=== PATIENT | female | born 1955 | race Caucasian/White ===

== ENCOUNTER → 2017-10-31 | Outpatient (CLI) | payer MEDICARE, OTHER ==
[~2017-10-31] MED LIST: ACET325 PO; AMOCLA600S PO; ASPI325 PO; ASPI81EC PO; BENZ.5 PO; BENZ1I IM; BENZOTROPINE; CIPR500 PO; CLON.5 PO; DIPH50 PO; DOCU100 PO; ERGO50000 PO; FURO40 PO; HALO5 PO; HYDPAM25 PO; Haldol Dec100 MG/1 M IM; LEVE500 PO; LEVFLO250 PO; LEVO750 PO; LEVSOD100 PO; LEVSOD50 PO; LISI5 PO; LITH300C PO; LITH300CA PO; LITH450ER PO; LORA2 PO; LORA2L IM; MELA3 PO; METO25; MIDO5 PO; NIAC250ER PO; OLAN10 PO; OLAN10A MM; OMEP20ER PO; ONDA8ODT MM; POTCIT10; PROP80ER PO; RANI150EL; SULTRIDS PO; TRIA80TC TOP; VITAMIN B1; VRAYLAR6 MG PO; ZOLP10 PO; [UNRECOGNIZED DRUG - REMARK]
[2017-11-01 08:54] LABS: Bilirubin, Urine Neg (Neg); Blood, Urine Neg (Neg); Glucose Qualitative, Urine Neg (Neg); Ketones, Urine Neg (Neg); Leukocyte Esterase, Urine 1+ (Neg); Nitrite, Urine Neg (Neg); Protein, Urine Neg (Neg); Urobilinogen, Urine NORM (Normal)
[2017-11-01 09:08] LABS: Appearance, Urine Hazy (Clear); Color, Urine Yellow (P-Yellow)
[2017-11-01 09:23] LABS: Red Blood Cells, Urine Not Seen /hpf (0-2)
[2017-11-01 09:24] LABS: Bacteria Few /hpf; Squamous Epithelial Cells Few /hpf (Few)
[2017-11-01 09:25] LABS: Calcium Oxalate Crystals Mod /hpf; Mucus Light (0-Heavy)
== END ==
LOC: LAB SHORT 13:45
DX: N39.0 Urinary tract infection, site not specified (principal)
CPT/HCPCS: 81001; 87086; 87106

== ENCOUNTER 2017-11-16 02:14 | Emergency (ER) | payer MEDICARE, OTHER ==
[~2017-11-16] VITALS: Ht 162.6 cm; Wt 81.7 kg
[~2017-11-16 02:14] MED LIST changes: -ACET325 PO; -BENZOTROPINE; -CLON.5 PO; -FURO40 PO; -HALO5 PO; -LEVE500 PO; -LORA2L IM; -MELA3 PO; -METO25; -MIDO5 PO; -POTCIT10; -RANI150EL; -VITAMIN B1; -VRAYLAR6 MG PO
[2017-11-16] MEDS ORDERED: VRAYLAR6 MG PO (02:45)
[2017-11-16] MEDS ORDERED: VITAMIN B1 (02:46)
[2017-11-16] MEDS ORDERED: ACET325 PO (02:46)
[2017-11-16] MEDS ORDERED: CLON.5 PO ×2 (02:47→02:51)
[2017-11-16] MEDS ORDERED: HALO5 PO (02:48)
[2017-11-16] MEDS ORDERED: LORA2L IM (02:48)
[2017-11-16] MEDS ORDERED: MELA3 PO (02:48)
[2017-11-16] MEDS ORDERED: BENZOTROPINE (02:50)
[2017-11-16] MEDS ORDERED: LEVSOD50 PO (02:50)
[2017-11-16] MEDS ORDERED: FURO40 PO (02:51)
[2017-11-16] MEDS ORDERED: LEVE500 PO (02:51)
[2017-11-16] MEDS ORDERED: POTCIT10 (02:52)
[2017-11-16] MEDS ORDERED: METO25 (02:52)
[2017-11-16] MEDS ORDERED: MIDO5 PO (02:52)
[2017-11-16] MEDS ORDERED: RANI150EL (02:53)
[2017-11-16 03:06] LABS: BASOPHILS ABSOLUTE AUTO 0.04 K/mm3 (0.00-0.23); BASOPHILS PERCENT AUTO 1 % (0-2); EOSINOPHILS ABSOLUTE AUTO 0.08 K/mm3 (0.00-0.68); EOSINOPHILS PERCENT AUTO 1 % (0-6); Hemoglobin 12.8 g/dL (11.5-16.0); IMMATURE GRAN ABSOLUTE AUTO 0.01 K/mm3 (0.00-0.10); IMMATURE GRAN PERCENT AUTO 0 % (0-1); LYMPHOCYTES ABSOLUTE AUTO 2.56 K/mm3 (0.84-5.20); LYMPHOCYTES PERCENT AUTO 38 % (21-46); MONOCYTES ABSOLUTE AUTO 0.84 K/mm3 (0.16-1.47); MONOCYTES PERCENT AUTO 12 % (4-13); Mean Corpuscular HGB 30.3 pg (26.0-34.0); Mean Corpuscular HGB Conc 32.8 g/dL (31.5-36.5); Mean Corpuscular Volume 92 fL (80-100); Mean Platelet Volume 11.3 fL (9.1-12.4); NEUTROPHILS ABSOLUTE AUTO 3.22 K/mm3 (1.96-9.15); NEUTROPHILS PERCENT AUTO 48 % (41-73); Platelet Count 180 K/mm3 (150-400); RDW Coefficient Variation 12.3 % (11.7-14.2); RDW Standard Deviation 41.2 fL (35.1-46.3); Red Blood Cell Count 4.22 M/mm3 (3.80-5.20); White Blood Cell Count 6.75 K/mm3 (4.00-11.30)
[2017-11-16 03:23] LABS: Alanine Aminotransfer (ALT/SGP 20 U/L (12-78); Albumin, Blood 3.4 g/dL (3.4-5.0); Albumin/Globulin Ratio 1.1 (0.8-1.8); Alk Phos 131 U/L (50-136); Anion Gap 11 mmol/L (6-16); Aspartate Aminotrans (AST/SGOT 26 U/L (12-37); Bilirubin, Total 0.7 mg/dL (0.1-1.0); Blood Urea Nitrogen 19 mg/dL (8-24); Bun/Creatinine Ratio 22.9 (12.0-20.0); CO2, Blood 24 mmol/L (21-32); Calcium, Blood 9.3 mg/dL (8.5-10.1); Chloride, Blood 108 mmol/L (98-108); Creatinine, Blood 0.83 mg/dL (0.40-1.00); Globulin, Blood 3.2 g/dL (2.2-4.0); Glomerular Filtration Rate >60 (60-); Glucose, Blood 64 mg/dL (70-99); Potassium, Blood 3.9 mmol/L (3.5-5.5); Sodium, Blood 143 mmol/L (136-145); Total Protein, Blood 6.6 g/dL (6.4-8.2); Troponin I <0.015 ng/mL (0.000-0.040)
[2017-11-16 04:04] LABS: Source, Urine Clean Catch
[2017-11-16 04:06] LABS: Blood, Urine 1+ (Neg); Glucose Qualitative, Urine Neg (Neg); Ketones, Urine 2+ (Neg); Leukocyte Esterase, Urine 3+ (Neg); Nitrite, Urine Neg (Neg); Protein, Urine 2+ (Neg); Specific Gravity, Urine 1.025 (1.003-1.022); Urobilinogen, Urine 1+ (Normal)
[2017-11-16 04:12] LABS: Appearance, Urine Hazy (Clear); Bilirubin, Urine 1+ (Neg); Color, Urine Amber (P-Yellow); White Blood Cells, Urine 25-50 /hpf (0-5)
[2017-11-16 04:13] LABS: Amorphous Light (0-Heavy); Bacteria Mod /hpf; Mucus Mod (0-Heavy); Squamous Epithelial Cells Few /hpf (Few)
== END 2017-11-16 05:57 | disposition home or self-care (01) ==
LOC: ER 02:14
PROVIDERS: Emergency Medicine
DX: F30.9 Manic episode, unspecified (principal); Z88.8 Allergy status to other drugs, medicaments and biological substances; Z79.899 Other long term (current) drug therapy; F31.9 Bipolar disorder, unspecified; F25.9 Schizoaffective disorder, unspecified; G40.909 Epilepsy, unspecified, not intractable, without status epilepticus
CPT/HCPCS: 36415; 51702; 80053; 81001; 83605; 83690; 84484; 85025; 87040; 87086; 87147; 93005; 93010; 96361; 96374; 99285; J2060; J7030

== ENCOUNTER → 2018-02-02 | Outpatient (CLI) | END | disposition home or self-care (01) ==

== ENCOUNTER → 2018-03-29 | Outpatient (CLI) | payer MEDICARE, OTHER ==
[~2018-03-29] MED LIST changes: +ACET325 PO; +BENZOTROPINE; +CLON.5 PO; +FURO40 PO; +HALO5 PO; +LEVE500 PO; +LORA2L IM; +MELA3 PO; +METO25; +MIDO5 PO; +POTCIT10; +RANI150EL; +VITAMIN B1; +VRAYLAR6 MG PO
[2018-03-29 11:44] LABS: Source, Urine Clean Catch
[2018-03-29 12:37] LABS: Bilirubin, Urine Neg (Neg); Blood, Urine 1+ (Neg); Glucose Qualitative, Urine Neg (Neg); Ketones, Urine Neg (Neg); Leukocyte Esterase, Urine 3+ (Neg); Nitrite, Urine Neg (Neg); Protein, Urine 1+ (Neg); Urobilinogen, Urine NORM (Normal)
[2018-03-29 12:57] LABS: Appearance, Urine Hazy (Clear); Color, Urine Yellow (P-Yellow)
[2018-03-29 12:58] LABS: Bacteria Few /hpf; Red Blood Cells, Urine 0-2 /hpf (0-2); Squamous Epithelial Cells Few /hpf (Few)
[2018-03-29 12:59] LABS: Calcium Oxalate Crystals Mod /hpf
== END ==
LOC: LAB 11:42 → LAB SHORT 11:42
PROVIDERS: Physician Assistant
DX: N39.0 Urinary tract infection, site not specified (principal)
CPT/HCPCS: 81001; 87086; 87147

== ENCOUNTER → 2018-04-12 | Outpatient (CLI) | payer MEDICARE, OTHER ==
[2018-04-13 19:25] LABS: Source, Urine Clean Catch
[2018-04-13 19:31] LABS: Appearance, Urine Clear (Clear); Bilirubin, Urine Neg (Neg); Blood, Urine Neg (Neg); Color, Urine Yellow (P-Yellow); Glucose Qualitative, Urine Neg (Neg); Ketones, Urine Neg (Neg); Leukocyte Esterase, Urine Neg (Neg); Nitrite, Urine Neg (Neg); Protein, Urine Neg (Neg); Urobilinogen, Urine NORM (Normal)
== END ==
LOC: LAB 18:45 → LAB SHORT 18:45
PROVIDERS: Physician Assistant
DX: N39.0 Urinary tract infection, site not specified (principal)
CPT/HCPCS: 81003

== ENCOUNTER → 2018-05-21 | Outpatient (CLI) | payer MEDICARE, OTHER ==
[2018-05-21 15:05] LABS: Appearance, Urine Hazy (Clear); Bilirubin, Urine Neg (Neg); Blood, Urine Neg (Neg); Color, Urine Yellow (P-Yellow); Glucose Qualitative, Urine Neg (Neg); Ketones, Urine 3+ (Neg); Leukocyte Esterase, Urine Neg (Neg); Nitrite, Urine Neg (Neg); Protein, Urine Neg (Neg); Urobilinogen, Urine NORM (Normal)
[2018-05-21 15:34] LABS: Amorphous Light (0-Heavy); Bacteria Few /hpf; Red Blood Cells, Urine Not Seen /hpf (0-2); Squamous Epithelial Cells Not Seen /hpf (Few); White Blood Cells, Urine 0-2 /hpf (0-5)
== END ==
LOC: LAB SHORT 10:58 → LAB 10:58
PROVIDERS: Physician Assistant
DX: N39.0 Urinary tract infection, site not specified (principal)
CPT/HCPCS: 81001

== ENCOUNTER → 2018-09-18 | Outpatient (CLI) | payer MEDICARE, OTHER ==
[2018-09-19 12:00] LABS: Source, Urine Clean Catch
[2018-09-19 12:10] LABS: Bilirubin, Urine Neg (Neg); Blood, Urine Neg (Neg); Glucose Qualitative, Urine Neg (Neg); Ketones, Urine Neg (Neg); Leukocyte Esterase, Urine Neg (Neg); Nitrite, Urine Neg (Neg); Protein, Urine Neg (Neg); Specific Gravity, Urine 1.005 (1.003-1.022); Urobilinogen, Urine NORM (Normal); pH, Urine 6.5 (5.0-8.0)
[2018-09-19 12:20] LABS: Appearance, Urine Clear (Clear); Color, Urine Pale Yellow (P-Yellow)
== END ==
LOC: LAB 11:58 → LAB SHORT 11:58
PROVIDERS: Family Medicine
DX: N39.0 Urinary tract infection, site not specified (principal)
CPT/HCPCS: 81003

== ENCOUNTER → 2018-10-05 | Outpatient (CLI) | payer MEDICARE, OTHER ==
[2018-10-05 19:02] LABS: Source, Urine Clean Catch
[2018-10-05 19:08] LABS: Bilirubin, Urine Neg (Neg); Blood, Urine Neg (Neg); Glucose Qualitative, Urine Neg (Neg); Ketones, Urine 1+ (Neg); Leukocyte Esterase, Urine 1+ (Neg); Nitrite, Urine Neg (Neg); Protein, Urine 1+ (Neg); Specific Gravity, Urine 1.015 (1.003-1.022); Urobilinogen, Urine NORM (Normal)
[2018-10-05 19:18] LABS: Appearance, Urine Clear (Clear); Color, Urine Yellow (P-Yellow)
[2018-10-05 19:19] LABS: Red Blood Cells, Urine 0-2 /hpf (0-2)
[2018-10-05 19:25] LABS: Bacteria Few /hpf; Squamous Epithelial Cells Mod /hpf (Few)
== END ==
LOC: LAB SHORT 13:35 → LAB 13:35
PROVIDERS: Family Medicine
DX: N39.0 Urinary tract infection, site not specified (principal)
CPT/HCPCS: 81001; 87086

== ENCOUNTER → 2018-10-09 | Outpatient (CLI) | payer MEDICARE, OTHER ==
[2018-10-09 14:18] LABS: Source, Urine Clean Catch
[2018-10-09 15:35] LABS: Appearance, Urine Clear (Clear); Bilirubin, Urine Neg (Neg); Blood, Urine Neg (Neg); Color, Urine Yellow (P-Yellow); Glucose Qualitative, Urine Neg (Neg); Ketones, Urine Neg (Neg); Leukocyte Esterase, Urine Neg (Neg); Nitrite, Urine Neg (Neg); Protein, Urine Neg (Neg); Urobilinogen, Urine NORM (Normal); pH, Urine 6.5 (5.0-8.0)
== END ==
LOC: LAB 14:16 → LAB SHORT 14:16
PROVIDERS: Family Medicine
DX: N39.0 Urinary tract infection, site not specified (principal)
CPT/HCPCS: 81003

== ENCOUNTER → 2018-11-21 | Outpatient (CLI) | payer MEDICARE, OTHER ==
[2018-11-21 12:43] LABS: Appearance, Urine Turbid (Clear); Bilirubin, Urine Neg (Neg); Blood, Urine Neg (Neg); Color, Urine Yellow (P-Yellow); Glucose Qualitative, Urine Neg (Neg); Ketones, Urine Neg (Neg); Leukocyte Esterase, Urine 1+ (Neg); Nitrite, Urine Neg (Neg); Protein, Urine 1+ (Neg); Specific Gravity, Urine 1.025 (1.003-1.022); Urobilinogen, Urine NORM (Normal)
[2018-11-21 13:25] LABS: Bacteria Many /hpf; Red Blood Cells, Urine 0-2 /hpf (0-2); Squamous Epithelial Cells Few /hpf (Few); White Blood Cells, Urine 0-2 /hpf (0-5)
[2018-11-21 13:26] LABS: Calcium Oxalate Crystals Few /hpf
== END ==
LOC: LAB 12:17 → LAB SHORT 12:17
PROVIDERS: Family Medicine
DX: N39.0 Urinary tract infection, site not specified (principal)
CPT/HCPCS: 81001; 87086

== ENCOUNTER → 2018-11-26 | Outpatient (CLI) | payer MEDICARE, OTHER ==
[2018-11-26 11:53] LABS: Source, Urine Clean Catch
[2018-11-26 12:22] LABS: Bilirubin, Urine Neg (Neg); Blood, Urine Neg (Neg); Glucose Qualitative, Urine Neg (Neg); Ketones, Urine Neg (Neg); Leukocyte Esterase, Urine Neg (Neg); Nitrite, Urine Neg (Neg); Protein, Urine 1+ (Neg); Specific Gravity, Urine 1.025 (1.003-1.022); Urobilinogen, Urine NORM (Normal)
[2018-11-26 12:35] LABS: Appearance, Urine Clear (Clear); Color, Urine Yellow (P-Yellow)
== END | disposition home or self-care (01) ==
LOC: LAB SHORT 11:51 → LAB 11:51
PROVIDERS: Family Medicine
DX: N39.0 Urinary tract infection, site not specified (principal)
CPT/HCPCS: 81003

== ENCOUNTER → 2018-12-27 | Outpatient (CLI) | payer MEDICARE, OTHER ==
[2018-12-27 13:56] LABS: Source, Urine Clean Catch
[2018-12-27 14:17] LABS: Bilirubin, Urine Neg (Neg); Blood, Urine Neg (Neg); Glucose Qualitative, Urine Neg (Neg); Ketones, Urine Neg (Neg); Leukocyte Esterase, Urine Neg (Neg); Nitrite, Urine Neg (Neg); Protein, Urine Neg (Neg); Urobilinogen, Urine NORM (Normal)
[2018-12-27 14:30] LABS: Appearance, Urine Clear (Clear); Color, Urine Yellow (P-Yellow)
== END | disposition home or self-care (01) ==
LOC: LAB SHORT 13:53 → LAB 13:53
PROVIDERS: Family Medicine
DX: N39.0 Urinary tract infection, site not specified (principal)
CPT/HCPCS: 81003

== ENCOUNTER → 2019-06-10 | Outpatient (CLI) | payer MEDICARE, OTHER ==
[~2019-06-10] MED LIST changes: +Anti-Diarrheal2 MG PO; +B Complex-Foli1 EACH; +BIOTIN5000 MC1; +BISA10S; +Benztropine Mesy1 MG; +CIPR250; +LEVSOD25 PO; +LORA.5 PO; +Midodrine HCl10 MG PO; +OMEPRAZOLE MAGN20 MG PO; +Prozac20 MG PO; +Thiamine HCl100 MG PO; +VRAYLAR6 MG; +Vitamin B-121000 MCG; +Zantac150 MG PO
[2019-06-10 14:32] LABS: Source, Urine Clean Catch
[2019-06-10 14:35] LABS: Bilirubin, Urine Neg (Neg); Blood, Urine 1+ (Neg); Glucose Qualitative, Urine Neg (Neg); Ketones, Urine Neg (Neg); Leukocyte Esterase, Urine 3+ (Neg); Nitrite, Urine Neg (Neg); Protein, Urine Neg (Neg); Urobilinogen, Urine NORM (Normal)
[2019-06-10 14:42] LABS: Appearance, Urine Hazy (Clear); Color, Urine Yellow (P-Yellow)
[2019-06-10 14:44] LABS: Red Blood Cells, Urine 0-2 /hpf (0-2); White Blood Cells, Urine 50-100 /hpf (0-5)
[2019-06-10 14:45] LABS: Bacteria Many /hpf; Squamous Epithelial Cells Rare /hpf (Few)
== END | disposition home or self-care (01) ==
LOC: LAB 14:31 → LAB SHORT 14:31
PROVIDERS: Family Medicine
DX: N39.0 Urinary tract infection, site not specified (principal)
CPT/HCPCS: 81001; 87077; 87086; 87186

== ENCOUNTER 2019-06-19 07:55 | Day surgery (SDC) | payer MEDICARE ==
[~2019-06-19] VITALS: Ht 157.5 cm; Wt 70.0 kg
[~2019-06-19 07:55] MED LIST changes: -B Complex-Foli1 EACH; -BIOTIN5000 MC1; -BISA10S; -Benztropine Mesy1 MG; -CIPR250; -VRAYLAR6 MG; -Vitamin B-121000 MCG
[2019-06-19] MEDS ORDERED: Benztropine Mesy1 MG (08:44)
[2019-06-19] MEDS ORDERED: BIOTIN5000 MC1 (08:44)
[2019-06-19] MEDS ORDERED: CIPR250 (08:46)
[2019-06-19] MEDS ORDERED: Vitamin B-121000 MCG (08:49)
[2019-06-19] MEDS ORDERED: VRAYLAR6 MG (08:50)
[2019-06-19] MEDS ORDERED: BISA10S (08:50)
[2019-06-19] MEDS ORDERED: B Complex-Foli1 EACH (08:50)
== END 2019-06-19 10:58 | disposition home or self-care (01) ==
LOC: ORSCSDS 07:55
PROVIDERS: Ophthalmology
PROC: 08RJ3JZ Replacement of Right Lens with Synthetic Substitute, Percutaneous Approach (ICD-10-PCS; principal; 2019-06-19 09:30)
PROC: 08RK3JZ Replacement of Left Lens with Synthetic Substitute, Percutaneous Approach (ICD-10-PCS; principal; 2019-06-19 09:30)
DX: H25.13 Age-related nuclear cataract, bilateral (principal); I12.9 Hypertensive chronic kidney disease with stage 1 through stage 4 chronic kidney disease, or unspecified chronic kidney disease; N18.3 Chronic kidney disease, stage 3 (moderate); K21.9 Gastro-esophageal reflux disease without esophagitis; R56.9 Unspecified convulsions; Z79.899 Other long term (current) drug therapy
CPT/HCPCS: J1100; J2001; J2405; J2704; J3010; J3301; V2632

== ENCOUNTER → 2019-08-14 | Outpatient (CLI) | payer MEDICARE, OTHER ==
[~2019-08-14] MED LIST changes: +B Complex-Foli1 EACH; +BIOTIN5000 MC1; +BISA10S; +Benztropine Mesy1 MG; +CIPR250; +VRAYLAR6 MG; +Vitamin B-121000 MCG
[2019-08-14 16:35] LABS: Bilirubin, Urine Neg (Neg); Blood, Urine 1+ (Neg); Glucose Qualitative, Urine Neg (Neg); Ketones, Urine Neg (Neg); Leukocyte Esterase, Urine 3+ (Neg); Nitrite, Urine Neg (Neg); Protein, Urine 1+ (Neg); Urobilinogen, Urine NORM (Normal)
[2019-08-14 16:44] LABS: Appearance, Urine Hazy (Clear); Color, Urine Yellow (P-Yellow)
[2019-08-14 16:45] LABS: White Blood Cells, Urine TNTC /hpf (0-5)
[2019-08-14 16:46] LABS: Bacteria Many /hpf; Squamous Epithelial Cells Few /hpf (Few)
== END | disposition home or self-care (01) ==
LOC: LAB SHORT 14:38 → LAB 14:38
PROVIDERS: Family Medicine
DX: N39.0 Urinary tract infection, site not specified (principal)
CPT/HCPCS: 81001; 87077; 87086; 87186

== ENCOUNTER → 2019-09-10 | Outpatient (CLI) | payer MEDICARE, OTHER ==
[2019-09-10 20:20] LABS: Bilirubin, Urine Neg (Neg); Blood, Urine 3+ (Neg); Glucose Qualitative, Urine Neg (Neg); Ketones, Urine Neg (Neg); Leukocyte Esterase, Urine 3+ (Neg); Nitrite, Urine Neg (Neg); Protein, Urine 2+ (Neg); Specific Gravity, Urine 1.025 (1.003-1.022); Urobilinogen, Urine NORM (Normal)
[2019-09-10 20:23] LABS: Color, Urine Yellow (P-Yellow)
[2019-09-10 20:24] LABS: Appearance, Urine Turbid (Clear)
[2019-09-10 20:28] LABS: Bacteria Many /hpf; Squamous Epithelial Cells Not Seen /hpf (Few); White Blood Cells, Urine TNTC /hpf (0-5)
== END | disposition home or self-care (01) ==
LOC: LAB 19:27 → LAB SHORT 19:27
PROVIDERS: Family Medicine
DX: N39.0 Urinary tract infection, site not specified (principal)
CPT/HCPCS: 81001; 87086

== ENCOUNTER → 2020-02-26 | Outpatient (CLI) | payer OTHER ==
[2020-02-26 14:05] LABS: BASOPHILS ABSOLUTE AUTO 0.05 K/mm3 (0.00-0.23); BASOPHILS PERCENT AUTO 1 % (0-2); EOSINOPHILS ABSOLUTE AUTO 0.07 K/mm3 (0.00-0.68); EOSINOPHILS PERCENT AUTO 2 % (0-6); Hematocrit 43.6 % (33.0-51.0); Hemoglobin 14.2 g/dL (11.5-16.0); IMMATURE GRAN ABSOLUTE AUTO 0.02 K/mm3 (0.00-0.10); IMMATURE GRAN PERCENT AUTO 0 % (0-1); LYMPHOCYTES ABSOLUTE AUTO 1.33 K/mm3 (0.84-5.20); LYMPHOCYTES PERCENT AUTO 29 % (21-46); MONOCYTES ABSOLUTE AUTO 0.34 K/mm3 (0.16-1.47); MONOCYTES PERCENT AUTO 7 % (4-13); Mean Corpuscular HGB 28.9 pg (26.0-34.0); Mean Corpuscular HGB Conc 32.6 g/dL (31.5-36.5); Mean Corpuscular Volume 89 fL (80-100); Mean Platelet Volume 11.5 fL (9.1-12.4); NEUTROPHILS PERCENT AUTO 61 % (41-73); Platelet Count 146 K/mm3 (150-400); RDW Coefficient Variation 12.5 % (11.7-14.2); RDW Standard Deviation 40.7 fL (35.1-46.3); Red Blood Cell Count 4.92 M/mm3 (3.80-5.20); White Blood Cell Count 4.61 K/mm3 (4.00-11.30)
[2020-02-26 15:32] LABS: Alanine Aminotransfer (ALT/SGP 37 U/L (12-78); Albumin, Blood 3.4 g/dL (3.4-5.0); Albumin/Globulin Ratio 1.1 (0.8-1.8); Alk Phos 94 U/L (50-136); Anion Gap 4 mmol/L (6-16); Aspartate Aminotrans (AST/SGOT 21 U/L (12-37); Bilirubin, Total 0.4 mg/dL (0.1-1.0); Blood Urea Nitrogen 19 mg/dL (8-24); Bun/Creatinine Ratio 24.4 (12.0-20.0); CO2, Blood 29 mmol/L (21-32); Calcium, Blood 9.2 mg/dL (8.5-10.1); Chloride, Blood 109 mmol/L (98-108); Creatinine, Blood 0.78 mg/dL (0.40-1.00); Globulin, Blood 3.2 g/dL (2.2-4.0); Glomerular Filtration Rate >60 (60-); Glucose, Blood 122 mg/dL (70-99); Sodium, Blood 142 mmol/L (136-145); Total Protein, Blood 6.6 g/dL (6.4-8.2)
== END | disposition home or self-care (01) ==
LOC: LAB 12:23 → LAB SHORT 12:23
PROVIDERS: Family Medicine
DX: E03.9 Hypothyroidism, unspecified (principal); N18.3 Chronic kidney disease, stage 3 (moderate)
CPT/HCPCS: 80053; 84443; 85025

== ENCOUNTER → 2020-04-07 | Outpatient (CLI) | payer OTHER ==
[2020-04-07 19:40] LABS: Source, Urine Clean Catch
[2020-04-07 19:59] LABS: Bilirubin, Urine Neg (Neg); Blood, Urine Neg (Neg); Glucose Qualitative, Urine Neg (Neg); Ketones, Urine Neg (Neg); Leukocyte Esterase, Urine 3+ (Neg); Nitrite, Urine Neg (Neg); Protein, Urine 1+ (Neg); Specific Gravity, Urine 1.025 (1.003-1.022); Urobilinogen, Urine NORM (Normal)
[2020-04-07 20:18] LABS: Appearance, Urine Hazy (Clear); Color, Urine Yellow (P-Yellow)
[2020-04-07 20:20] LABS: Red Blood Cells, Urine Not Seen /hpf (0-2); Squamous Epithelial Cells Few /hpf (Few)
[2020-04-07 20:21] LABS: Amorphous Mod (0-Heavy); Bacteria Mod /hpf; Calcium Oxalate Crystals Mod /hpf; Mucus Light (0-Heavy)
== END | disposition home or self-care (01) ==
LOC: LAB SHORT 11:00 → LAB 11:00
PROVIDERS: Family Medicine
DX: N39.0 Urinary tract infection, site not specified (principal)
CPT/HCPCS: 81001; 87086

== ENCOUNTER → 2020-06-03 | Outpatient (CLI) | payer OTHER ==
[2020-06-04 12:29] LABS: Source, Urine Clean Catch
[2020-06-04 13:25] LABS: Appearance, Urine Hazy (Clear); Bilirubin, Urine Neg (Neg); Blood, Urine Neg (Neg); Color, Urine Yellow (P-Yellow); Glucose Qualitative, Urine Neg (Neg); Ketones, Urine Neg (Neg); Leukocyte Esterase, Urine 3+ (Neg); Nitrite, Urine Neg (Neg); Protein, Urine Neg (Neg); Specific Gravity, Urine 1.015 (1.003-1.022); Urobilinogen, Urine NORM (Normal); pH, Urine 6.5 (5.0-8.0)
[2020-06-04 14:27] LABS: Red Blood Cells, Urine 0-2 /hpf (0-2)
[2020-06-04 14:29] LABS: Squamous Epithelial Cells Few /hpf (Few)
[2020-06-04 14:30] LABS: Bacteria Few /hpf
== END ==
LOC: LAB SHORT 12:24 → LAB 12:24
PROVIDERS: Family Medicine
DX: N39.0 Urinary tract infection, site not specified (principal)
CPT/HCPCS: 81001; 87077; 87086; 87186

== ENCOUNTER → 2020-07-31 | Outpatient (CLI) | payer OTHER ==
[2020-07-31 19:13] LABS: Source, Urine Clean Catch
[2020-07-31 19:42] LABS: Appearance, Urine Clear (Clear); Bilirubin, Urine Neg (Neg); Blood, Urine Neg (Neg); Color, Urine Yellow (P-Yellow); Glucose Qualitative, Urine Neg (Neg); Ketones, Urine Neg (Neg); Leukocyte Esterase, Urine 1+ (Neg); Nitrite, Urine Neg (Neg); Protein, Urine Neg (Neg); Urobilinogen, Urine NORM (Normal)
[2020-07-31 20:14] LABS: Mucus Light (0-Heavy)
[2020-07-31 20:15] LABS: Calcium Oxalate Crystals Mod /hpf; Red Blood Cells, Urine 0-2 /hpf (0-2)
[2020-07-31 20:16] LABS: Bacteria Rare /hpf; Squamous Epithelial Cells Few /hpf (Few); Transitional Epithelial Cells Rare /hpf (0-Rare)
== END | disposition home or self-care (01) ==
LOC: LAB 19:11 → LAB SHORT 19:11
PROVIDERS: Family Medicine
DX: N39.0 Urinary tract infection, site not specified (principal)
CPT/HCPCS: 81001; 87086

== ENCOUNTER → 2020-09-22 | Outpatient (CLI) | payer OTHER ==
[~2020-09-22] MED LIST changes: +ALUM-MAG HYDROX30 ML PO; +APHEN325 M1 PR; +ATROPINE SULFATE5 ML SL; -Anti-Diarrheal2 MG PO; +Ativan1 MG PO; -B Complex-Foli1 EACH; +BIOTIN5 MG PO; -BIOTIN5000 MC1; -BISA10S; +BISA10S PR; -Benztropine Mesy1 MG; +Benztropine Mesy1 MG PO; +CALMOSEPTINE TOP; +DULCOLAX400 MG/5 M PO; +Diastat2.5 MG PR; +ELIQUIS2.5 MG PO; +EUCERIN CREME TOP; +HALO2 PO; -HALO5 PO; +KEPPRA100 MG/1 M PO; -LEVE500 PO; +LOPE2C PO; -LORA.5 PO; -LORA2L IM; -MELA3 PO; +MELATONIN5 M1 PO; +MIRALAX17 GM PO; +MORP20L SL; -Midodrine HCl10 MG PO; +NYSTOP15 GM TOP; +ONDA4ODT MM; +OXAYDO5 M1 PO; +PROC25S PR; +TRANSDERM-SCOP1 EAC1 TD; +TRIPLE ABX TOP; -VRAYLAR6 MG; +Vitamin B Comple1 EA PO; -Vitamin B-121000 MCG; +Vitamin B-121000 MCG PO
[2020-09-23 12:16] LABS: Source, Urine Clean Catch
[2020-09-23 13:10] LABS: Bilirubin, Urine Neg (Neg); Blood, Urine Neg (Neg); Glucose Qualitative, Urine Neg (Neg); Ketones, Urine Neg (Neg); Leukocyte Esterase, Urine Neg (Neg); Nitrite, Urine Neg (Neg); Protein, Urine Neg (Neg); Specific Gravity, Urine 1.005 (1.003-1.022); Urobilinogen, Urine NORM (Normal)
[2020-09-23 13:36] LABS: Color, Urine Yellow (P-Yellow)
[2020-09-23 13:37] LABS: Appearance, Urine Clear (Clear)
== END | disposition home or self-care (01) ==
LOC: LAB SHORT 12:30 → LAB 12:30
PROVIDERS: Family Medicine
DX: N39.0 Urinary tract infection, site not specified (principal)
CPT/HCPCS: 81003

== ENCOUNTER 2020-10-01 10:42 | Inpatient (IN) | payer OTHER ==
[~2020-10-01] VITALS: Ht 152.4 cm; Wt 70.1 kg
[~2020-10-01 10:42] MED LIST changes: -ACET325 PO; -ALUM-MAG HYDROX30 ML PO; -APHEN325 M1 PR; -ATROPINE SULFATE5 ML SL; -Ativan1 MG PO; -BIOTIN5 MG PO; -BISA10S PR; -Benztropine Mesy1 MG PO; -CALMOSEPTINE TOP; -DULCOLAX400 MG/5 M PO; -Diastat2.5 MG PR; -ELIQUIS2.5 MG PO; -EUCERIN CREME TOP; -HALO2 PO; -KEPPRA100 MG/1 M PO; -LEVSOD25 PO; -LOPE2C PO; -MELATONIN5 M1 PO; -MIRALAX17 GM PO; -MORP20L SL; -NYSTOP15 GM TOP; -ONDA4ODT MM; -OXAYDO5 M1 PO; -PROC25S PR; -Prozac20 MG PO; -TRANSDERM-SCOP1 EAC1 TD; -TRIPLE ABX TOP; -Vitamin B Comple1 EA PO; -Vitamin B-121000 MCG PO
[2020-10-01] MEDS ORDERED: VRAYLAR6 MG PO (14:10)
[2020-10-01] MEDS ORDERED: Prozac20 MG PO (14:12)
[2020-10-01] MEDS ORDERED: Benztropine Mesy1 MG PO (14:12)
[2020-10-01] MEDS ORDERED: HALO2 PO (14:13)
[2020-10-01] MEDS ORDERED: LEVSOD25 PO (14:15)
[2020-10-01] MEDS ORDERED: Ativan1 MG PO (14:16)
[2020-10-01] MEDS ORDERED: KEPPRA100 MG/1 M PO (14:17)
[2020-10-01] MEDS ORDERED: MIDO5 PO (14:18)
[2020-10-01 14:26] LABS: BASOPHILS ABSOLUTE AUTO 0.03 K/mm3 (0.00-0.23); BASOPHILS PERCENT AUTO 0 % (0-2); EOSINOPHILS ABSOLUTE AUTO 0.03 K/mm3 (0.00-0.68); EOSINOPHILS PERCENT AUTO 0 % (0-6); Hematocrit 41.5 % (33.0-51.0); Hemoglobin 13.4 g/dL (11.5-16.0); IMMATURE GRAN ABSOLUTE AUTO 0.01 K/mm3 (0.00-0.10); IMMATURE GRAN PERCENT AUTO 0 % (0-1); LYMPHOCYTES ABSOLUTE AUTO 1.09 K/mm3 (0.84-5.20); LYMPHOCYTES PERCENT AUTO 15 % (21-46); MONOCYTES ABSOLUTE AUTO 0.54 K/mm3 (0.16-1.47); MONOCYTES PERCENT AUTO 7 % (4-13); Mean Corpuscular HGB 28.7 pg (26.0-34.0); Mean Corpuscular HGB Conc 32.3 g/dL (31.5-36.5); Mean Corpuscular Volume 89 fL (80-100); NEUTROPHILS ABSOLUTE AUTO 5.73 K/mm3 (1.96-9.15); NEUTROPHILS PERCENT AUTO 77 % (41-73); Platelet Count 170 K/mm3 (150-400); RDW Coefficient Variation 13.3 % (11.7-14.2); RDW Standard Deviation 43.5 fL (35.1-46.3); Red Blood Cell Count 4.67 M/mm3 (3.80-5.20); White Blood Cell Count 7.43 K/mm3 (4.00-11.30)
[2020-10-01] MEDS ORDERED: ACET325 PO (14:28)
[2020-10-01] MEDS ORDERED: MELATONIN5 M1 PO (14:29)
[2020-10-01] MEDS ORDERED: LOPE2C PO (14:30)
[2020-10-01] MEDS ORDERED: BIOTIN5 MG PO (14:30)
[2020-10-01] MEDS ORDERED: Vitamin B-121000 MCG PO (14:31)
[2020-10-01] MEDS ORDERED: Vitamin B Comple1 EA PO (14:32)
[2020-10-01] MEDS ORDERED: BISA10S PR (14:33)
[2020-10-01] MEDS ORDERED: ALUM-MAG HYDROX30 ML PO (14:34)
[2020-10-01] MEDS ORDERED: DULCOLAX400 MG/5 M PO (14:35)
[2020-10-01] MEDS ORDERED: NYSTOP15 GM TOP (14:36)
[2020-10-01] MEDS ORDERED: PROC25S PR (14:36)
[2020-10-01] MEDS ORDERED: TRIPLE ABX TOP (14:37)
[2020-10-01] MEDS ORDERED: CALMOSEPTINE TOP (14:38)
[2020-10-01] MEDS ORDERED: MIRALAX17 GM PO (14:39)
[2020-10-01] MEDS ORDERED: EUCERIN CREME TOP (14:44)
[2020-10-01 14:53] LABS: Anion Gap 6 mmol/L (6-16); Blood Urea Nitrogen 21 mg/dL (8-24); CO2, Blood 25 mmol/L (21-32); Calcium, Blood 8.6 mg/dL (8.5-10.1); Chloride, Blood 113 mmol/L (98-108); Creatinine, Blood 0.73 mg/dL (0.40-1.00); Glomerular Filtration Rate >60 (60-); Glucose, Blood 111 mg/dL (70-99); Potassium, Blood 4.2 mmol/L (3.5-5.5); Sodium, Blood 144 mmol/L (136-145)
--- NOTE | 2020-10-01 18:14 | NUR ---
SHIFT SUMMARY PT WAKENS EASILY, DOES NOT APPEAR TO BE IN PAIN, DOES NOT COMMUNICATE, VSS. R FEMUR FX, CONSULT CALLED BY ER, PLAN FOR PT TO BE NPO AT MIDNIGHT FOR POSS SG TOMORROW. SISTER/GUARDIAN AT BEDSIDE. WILL REPORT TO ONCOMING NOC RN.
--- NOTE | 2020-10-02 02:17 | NUR ---
UNABLE TO OBTAIN COVID SWAB. WHEN ATTEMPTED, PT SHAKES HEAD, UNABLE TO FOLLOW DIRECTIONS. RN NUT PICKER NOTIFIED. COVID SWAB WILL BE ATTEMPTED AT A LATER TIME.
--- NOTE | 2020-10-02 04:25 | NUR ---
SHIFT SUMMARY PT HAS BEEN SLEEPING MOST OF THE NIGHT, AWAKENS TO VERBAL STIMULI. PT HAS BEEN UNABLE TO COMMUNICATE MUCH VERBALLY. MEDICATED FOR PAIN PRN BASED ON FACE SCALE. PT IS INCONTINENT. ATTENS IN PLACE, CHANGED PRN. BED ALARM ON OVERNIGHT. NPO SINCE MIDNIGHT FOR POSSIBLE SURGERY TODAY. UNABLE TO OBTAIN COVID SWAB PT WAS SHAKING HEAD BACK AND FORTH WHEN SWAB WAS ATTEMPTED. PT RESTING IN BED AT THIS TIME. BED ALARM ON.
[2020-10-02 05:22] LABS: BASOPHILS ABSOLUTE AUTO 0.04 K/mm3 (0.00-0.23); BASOPHILS PERCENT AUTO 1 % (0-2); EOSINOPHILS ABSOLUTE AUTO 0.08 K/mm3 (0.00-0.68); EOSINOPHILS PERCENT AUTO 2 % (0-6); Hematocrit 37.4 % (33.0-51.0); Hemoglobin 11.8 g/dL (11.5-16.0); IMMATURE GRAN ABSOLUTE AUTO 0.01 K/mm3 (0.00-0.10); IMMATURE GRAN PERCENT AUTO 0 % (0-1); LYMPHOCYTES PERCENT AUTO 24 % (21-46); MONOCYTES ABSOLUTE AUTO 0.36 K/mm3 (0.16-1.47); MONOCYTES PERCENT AUTO 7 % (4-13); Mean Corpuscular HGB 28.2 pg (26.0-34.0); Mean Corpuscular HGB Conc 31.6 g/dL (31.5-36.5); Mean Corpuscular Volume 89 fL (80-100); Mean Platelet Volume 10.3 fL (9.1-12.4); NEUTROPHILS ABSOLUTE AUTO 3.35 K/mm3 (1.96-9.15); NEUTROPHILS PERCENT AUTO 67 % (41-73); Platelet Count 143 K/mm3 (150-400); RDW Coefficient Variation 13.5 % (11.7-14.2); Red Blood Cell Count 4.19 M/mm3 (3.80-5.20); White Blood Cell Count 5.04 K/mm3 (4.00-11.30)
[2020-10-02 05:33] LABS: International Normalized Ratio 0.99; Prothrombin Time Results 10.6 Sec (9.7-11.5)
[2020-10-02 05:40] LABS: Alanine Aminotransfer (ALT/SGP 101 U/L (12-78); Albumin, Blood 2.8 g/dL (3.4-5.0); Albumin/Globulin Ratio 0.9 (0.8-1.8); Alk Phos 99 U/L (50-136); Anion Gap 4 mmol/L (6-16); Aspartate Aminotrans (AST/SGOT 106 U/L (12-37); Bilirubin, Total 1.4 mg/dL (0.1-1.0); Blood Urea Nitrogen 22 mg/dL (8-24); Bun/Creatinine Ratio 31.8 (12.0-20.0); CO2, Blood 28 mmol/L (21-32); Calcium, Blood 8.6 mg/dL (8.5-10.1); Chloride, Blood 113 mmol/L (98-108); Creatinine, Blood 0.69 mg/dL (0.40-1.00); Globulin, Blood 3.2 g/dL (2.2-4.0); Glomerular Filtration Rate >60 (60-); Glucose, Blood 108 mg/dL (70-99); Potassium, Blood 3.8 mmol/L (3.5-5.5); Sodium, Blood 145 mmol/L (136-145)
--- NOTE | 2020-10-02 07:30 | NUR ---
pt sleeping wakes to verbal stimuli drowsy
[2020-10-02 07:44] LABS: Influenza A, PCR NEGATIVE (NEGATIVE); Influenza B, PCR NEGATIVE (NEGATIVE); Resp Syncytial Virus, PCR NEGATIVE (NEGATIVE); SARS-Cov-2 (COVID-19) PCR, MMC NEGATIVE (NEGATIVE)
--- NOTE | 2020-10-02 10:08 | NUR ---
dr rosenberg by to see pt earlier pt's sister called she is going to come in to sign consents
--- NOTE | 2020-10-02 10:50 | NUR ---
surgery site marked consent signed
--- NOTE | 2020-10-02 11:35 | NUR ---
10/02/20- pt having surgery today for broken hip. No Est. ETA for d/c at this time. -brunilda
--- NOTE | 2020-10-02 11:50 | NUR ---
pt restless has grimace with movement per sister morphine 2.5 mg ivp given
--- NOTE | 2020-10-02 12:00 | NUR ---
pt transported via bed to day surgery
--- NOTE | 2020-10-02 14:35 | NUR ---
RECVD REPORT FROM PREVIOUS RN ALMA DELIA, ASSUMED CARE OF PT, PT IN OR CURRENTLY
--- NOTE | 2020-10-02 15:05 | NUR ---
pt transferred to room on own bed, POA sister in room. pt asleep, does not wake to verbal/touch stimuli. post op vs commenced and stable. SPO2 100% on 3L, reduced to 2L. call light within reach, bed rails up x 2, bed in lowest position.
--- NOTE | 2020-10-02 17:19 | NUR ---
SHIFT SUMMARY: VSS, NO ACUTE CHANGES. PT HAS BEEN UP IN CHAIR FOR THE GREATER PORTION OF DAY SHIFT, HAS BEEN SOMNOLENT BUT AWAKENS TO VERBAL STIMULI AND FOLLOWS COMMANDS. PT/OT HAS WORKED WITH PATIENT THIS SHIFT. PT TOLERATING PO INTAKE, DENIES PAIN, BARCENAS CATHETER DRAINING CLEAR YELLOW URINE >1000 ML THIS SHIFT.
--- NOTE | 2020-10-02 17:22 | NUR ---
FOLLOWING SURGERY, PT REMAINS SLEEPY, NO GRIMACE OR MOAN, POST OP VSS AND CONTINUING. PT ALLOWS REPOSITIONING WITHOUT DISTURBANCE. OPERATIVE SITE WITH AQUACEL DRESSING C/D/I, NO SHADOWING. CAPILLARY REFILL <3 SEC, PEDAL PULSE IN OPERATIVE FOOT STRONG
--- NOTE | 2020-10-02 21:18 | NUR ---
2100 MEDS PT SLEEPING BUT ROUSABLE, DOESN'T STAY AWAKE FOR LONG, GARBLED SPEECH, HOLDING MEDS DUE TO POSSIBLE CHOKING HAZARD, WILL PASS LATER IF CONDITION IMPROVES
[2020-10-03 04:27] LABS: BASOPHILS PERCENT AUTO 0 % (0-2); EOSINOPHILS PERCENT AUTO 0 % (0-6); Hematocrit 41.1 % (33.0-51.0); IMMATURE GRAN ABSOLUTE AUTO 0.01 K/mm3 (0.00-0.10); IMMATURE GRAN PERCENT AUTO 0 % (0-1); LYMPHOCYTES ABSOLUTE AUTO 0.49 K/mm3 (0.84-5.20); LYMPHOCYTES PERCENT AUTO 9 % (21-46); MONOCYTES PERCENT AUTO 4 % (4-13); Mean Corpuscular HGB 28.5 pg (26.0-34.0); Mean Corpuscular HGB Conc 31.6 g/dL (31.5-36.5); Mean Corpuscular Volume 90 fL (80-100); Mean Platelet Volume 10.7 fL (9.1-12.4); NEUTROPHILS ABSOLUTE AUTO 4.82 K/mm3 (1.96-9.15); NEUTROPHILS PERCENT AUTO 87 % (41-73); Platelet Count 151 K/mm3 (150-400); Red Blood Cell Count 4.56 M/mm3 (3.80-5.20); White Blood Cell Count 5.52 K/mm3 (4.00-11.30)
[2020-10-03 04:45] LABS: Alanine Aminotransfer (ALT/SGP 147 U/L (12-78); Albumin, Blood 2.7 g/dL (3.4-5.0); Albumin/Globulin Ratio 0.7 (0.8-1.8); Alk Phos 136 U/L (50-136); Anion Gap 7 mmol/L (6-16); Aspartate Aminotrans (AST/SGOT 94 U/L (12-37); Bilirubin, Total 1.1 mg/dL (0.1-1.0); Blood Urea Nitrogen 20 mg/dL (8-24); Bun/Creatinine Ratio 29.3 (12.0-20.0); CO2, Blood 26 mmol/L (21-32); Chloride, Blood 111 mmol/L (98-108); Creatinine, Blood 0.68 mg/dL (0.40-1.00); Globulin, Blood 3.7 g/dL (2.2-4.0); Glomerular Filtration Rate >60 (60-); Glucose, Blood 134 mg/dL (70-99); Sodium, Blood 144 mmol/L (136-145); Total Protein, Blood 6.4 g/dL (6.4-8.2)
--- NOTE | 2020-10-03 05:48 | NUR ---
SHIFT SUMMARY POD1 PERCUTANEOUS PINNING, ALERT AND CONFUSED, SPEECH IS GARBLED AND INDISTINGUISHABLE FOR THE MOST PART, CAN SOMETIMES ANSWER SIMPLE YES/NO QUESTIONS. VSS. BEDTIME MEDS HELD DUE TO LOC, WAS CONCERNED FOR POSSIBLE CHOCKING HAZARD/PATIENT SAFETY. DOES NOT USE CALL LIGHT, PAIN MEDS GIVEN ONCE USING FLACC SCALE. CALL LIGHT IN REACH, BED IN LOW POSITION, BED ALARM ACTIVE, WILL CONTINUE TO MONITOR AND REPORT TO ONCOMING DAY RN.
--- NOTE | 2020-10-03 18:49 | NUR ---
SHIFT SUMMARY PT IS POD#1 FROM R HIP PINNING. PT HAS APPEARED TO BE ANXIOUS T/O THE DAY. ASSESSING PAIN IS DIFFICULT PT IS NON-VERBAL AND HAS ANXIETY AT BASELINE. PT HAS BEEN MEDICATED ROUTINELY WITH PO AND IV MEDICATION, SHE APPEARS TO RELAX AFTER PAIN MEDICATION IS GIVEN. PT'S SISTER HAS BEEN AT THE BEDSIDE AND IS SUPPORTIVE. PT'S SISTER HAS ASSISTED WITH MEALS AND FLUIDS ALTHOUGH PT IS NOT WANTING TO EAT. SPEECH THERAPY EVALUATED PT TODAY. PT IS ON A PUREE DIET AT THIS TIME AND CAN ADVANCE TO MECHANICAL SOFT WHICH SHE EATS AT BASELINE. PT HAS HAD ASSISTANCE WITH REPOSITIONING IN BED. PT WAS UNABLE TO VOID THIS SHIFT, SHE WAS RETAINING 650ML OF URINE, BLADDER SCANNER SHOWED 464ML BEFORE STRAIGHT CATH. VSS. WILL MONITOR UNTIL REPORT TO ONCOMING RN.
[2020-10-04 04:37] LABS: Alanine Aminotransfer (ALT/SGP 84 U/L (12-78); Albumin, Blood 2.5 g/dL (3.4-5.0); Albumin/Globulin Ratio 0.8 (0.8-1.8); Alk Phos 98 U/L (50-136); Anion Gap 3 mmol/L (6-16); Aspartate Aminotrans (AST/SGOT 59 U/L (12-37); Bilirubin, Total 1.1 mg/dL (0.1-1.0); Blood Urea Nitrogen 21 mg/dL (8-24); Bun/Creatinine Ratio 32.5 (12.0-20.0); CO2, Blood 30 mmol/L (21-32); Calcium, Blood 8.2 mg/dL (8.5-10.1); Chloride, Blood 112 mmol/L (98-108); Creatinine, Blood 0.65 mg/dL (0.40-1.00); Globulin, Blood 3.1 g/dL (2.2-4.0); Glomerular Filtration Rate >60 (60-); Glucose, Blood 107 mg/dL (70-99); Potassium, Blood 4.5 mmol/L (3.5-5.5); Sodium, Blood 145 mmol/L (136-145); Total Protein, Blood 5.6 g/dL (6.4-8.2)
[2020-10-04 04:40] LABS: BASOPHILS ABSOLUTE AUTO 0.01 K/mm3 (0.00-0.23); BASOPHILS PERCENT AUTO 0 % (0-2); EOSINOPHILS ABSOLUTE AUTO 0.08 K/mm3 (0.00-0.68); EOSINOPHILS PERCENT AUTO 1 % (0-6); Hematocrit 34.6 % (33.0-51.0); Hemoglobin 11.1 g/dL (11.5-16.0); IMMATURE GRAN ABSOLUTE AUTO 0.01 K/mm3 (0.00-0.10); IMMATURE GRAN PERCENT AUTO 0 % (0-1); LYMPHOCYTES ABSOLUTE AUTO 1.61 K/mm3 (0.84-5.20); LYMPHOCYTES PERCENT AUTO 24 % (21-46); MONOCYTES ABSOLUTE AUTO 0.54 K/mm3 (0.16-1.47); MONOCYTES PERCENT AUTO 8 % (4-13); Mean Corpuscular HGB 29.1 pg (26.0-34.0); Mean Corpuscular HGB Conc 32.1 g/dL (31.5-36.5); Mean Corpuscular Volume 91 fL (80-100); Mean Platelet Volume 10.4 fL (9.1-12.4); NEUTROPHILS ABSOLUTE AUTO 4.42 K/mm3 (1.96-9.15); NEUTROPHILS PERCENT AUTO 66 % (41-73); Platelet Count 154 K/mm3 (150-400); RDW Coefficient Variation 13.5 % (11.7-14.2); RDW Standard Deviation 44.6 fL (35.1-46.3); Red Blood Cell Count 3.82 M/mm3 (3.80-5.20); White Blood Cell Count 6.67 K/mm3 (4.00-11.30)
--- NOTE | 2020-10-04 05:25 | NUR ---
PT HAD NO CAHNGES T/O NIGHT. HR REMAINS TACHY LOW 100'S, OTHER VSS. PT ALERT, REMAINS ANXIOUS W/CARE, APPEARED COMFORTABLE AT REST AND APPEARED TO SLEEP FOR SEVERAL HRS DURING NIGHT. PT HAD 1 INCONTINENT VOID, BLADDER SCAN <200ML. PO FLUIDS OFFERRED W/ROUNDINGS; IVF CONT PER ORDERS. PT MED FOR PAIN PER FLACC SCALE. PT REPOSITIONED Q2 DURING NIGHT. BED ALARM ON FOR SAFETY.
--- NOTE | 2020-10-04 13:09 | NUR ---
SUMMARY: 10/04/20- per chart review with Dr. Tavares, pt is not eating and is on IV fluids. Pt is pretty much non-communicative due to mental health. She is gesturing that her stomach hurts. will order an abdominal xray to see if she is constipated. Pt's est ETA for d/c is Monday after [facility] comes and assess pt for her to go back to them. Will call on Monday to request this. -brunilda
--- NOTE | 2020-10-04 18:45 | NUR ---
SHIFT SUMMARY PT IS POD #2 FOR R HIP REPAIR. SHE REMAINS CONFUSED. SHE IS BETTER ABLE TO RESPOND TODAY AFTER RESTARTING HER VRAYLAR. PAIN STILL APPEARS TO BE DIFFICULT TO MANAGE. MORPHINE APPEARS TO WORK BEST FOR PAIN. NO SIGNIFICANT IMPROVEMENT WITH TRAMADOL; HOWEVER TRAMADOL AND MORPHINE HAVE BEEN ALTERNATED THIS SHIFT.
--- NOTE | 2020-10-05 06:24 | NUR ---
POD 3 S/P RIGHT HIP PINNING. PT VSS T/O NIGHT. DRESSING INTACT W/NO CHANGES NOTED TO SHADOWING. PT DOES APPEAR TO BE LESS ANXOIUS AND IS SOMEWHAT MORE INTERACTIVE THIS SHIFT, RESPONDS TO SIMPLE YES/NO QUESTIONS, SMILES AT TIMES. PT ASSISTED W/PO INTAKE, TOOK SEVERAL BITES OF APPLE SAUCE AND DID WELL DRINKING FROM SIPPY CUP. PT HAD 1 INCONTINENT VOID, BLADDER SCAN REMAINED BELOW 400ML, SO NO CATH WAS PLACED. REPOSITIONED Q2 T/O NIGHT. IVF CONT PER ORDERS.
--- NOTE | 2020-10-05 18:14 | NUR ---
SHIFT SUMMARY PT HAS BEEN PLEASANTLY CONFUSED T/O SHIFT. ENJOYS TALKING W/ HER SISTER ALTHOUGH 95% OF HER CONVERSATION IS GARBLED BUT SISTER STATES SHE IS GETTING MUCH CLOSER TO HER BASELINE COMMUNICATION. ABLE TO STAND W/ MAX ASSIST, BUT NOTHING MORE W/ THERAPY. CIPRIANO ALTAMIRANO INTO ASSESS PT. LIST OF EQIUPMENT GIVEN TO [facility]ANN[facility].
[2020-10-06 03:49] LABS: BASOPHILS ABSOLUTE AUTO 0.03 K/mm3 (0.00-0.23); BASOPHILS PERCENT AUTO 1 % (0-2); EOSINOPHILS ABSOLUTE AUTO 0.13 K/mm3 (0.00-0.68); EOSINOPHILS PERCENT AUTO 3 % (0-6); Hematocrit 34.9 % (33.0-51.0); Hemoglobin 11.7 g/dL (11.5-16.0); IMMATURE GRAN ABSOLUTE AUTO 0.01 K/mm3 (0.00-0.10); IMMATURE GRAN PERCENT AUTO 0 % (0-1); LYMPHOCYTES PERCENT AUTO 36 % (21-46); MONOCYTES ABSOLUTE AUTO 0.35 K/mm3 (0.16-1.47); MONOCYTES PERCENT AUTO 7 % (4-13); Mean Corpuscular HGB 29.8 pg (26.0-34.0); Mean Corpuscular HGB Conc 33.5 g/dL (31.5-36.5); Mean Corpuscular Volume 89 fL (80-100); NEUTROPHILS ABSOLUTE AUTO 2.86 K/mm3 (1.96-9.15); NEUTROPHILS PERCENT AUTO 54 % (41-73); RDW Coefficient Variation 13.2 % (11.7-14.2); RDW Standard Deviation 42.7 fL (35.1-46.3); Red Blood Cell Count 3.93 M/mm3 (3.80-5.20); White Blood Cell Count 5.28 K/mm3 (4.00-11.30)
[2020-10-06 03:50] LABS: Mean Platelet Volume 12.4 fL (9.1-12.4); Platelet Count 97 K/mm3 (150-400)
[2020-10-06 04:09] LABS: Anion Gap 7 mmol/L (6-16); Blood Urea Nitrogen 12 mg/dL (8-24); Bun/Creatinine Ratio 17.6 (12.0-20.0); CO2, Blood 27 mmol/L (21-32); Calcium, Blood 8.7 mg/dL (8.5-10.1); Chloride, Blood 113 mmol/L (98-108); Creatinine, Blood 0.68 mg/dL (0.40-1.00); Glomerular Filtration Rate >60 (60-); Glucose, Blood 85 mg/dL (70-99); Sodium, Blood 147 mmol/L (136-145)
--- NOTE | 2020-10-06 04:20 | NUR ---
SHIFT SUMMARY PT HAS BEEN ALERT, SPEECH GARBLED AND NONSENSICAL. VERY DIFFICULT TO UNDERSTAND. BED ALARM ON. PT HAS BEEN MEDICATED FOR PAIN BASED ON FACE SCALE AND SIGNS OF PAIN SUCH HOLDING HER HIP AND GRIMACING. TAKING PILLS CRUSHED WITH APPLESAUCE. PT HAS HAD LITTLE PO INTAKE; REFUSING FLUIDS WHEN OFFERED IN SIPPY CUP OR WITH SPOON. ATTEMPTED TO HELP PT WITH PO INTAKE MULTIPLE TIMES. PT ASSISTED WITH USE OF MOUTH SWABS FOR DRY MOUTH. ATTENS IN PLACE, CHANGED PRN FOR INCONTINENT VOIDS. REPOSITIONED MULT TIMES OVERNIGHT. PT RESTING IN BED AT THIS TIME, CALL LIGHT IN REACH.
[2020-10-06 08:45] LABS: Magnesium, Blood 2.1 mg/dL (1.6-2.4); Phosphorus, Blood 2.6 mg/dL (2.5-4.9)
[2020-10-06] MEDS ORDERED: ELIQUIS2.5 MG PO (12:02)
[2020-10-06] MEDS ORDERED: OXAYDO5 M1 PO (12:02)
[2020-10-06] MEDS ORDERED: DOCU100 PO (12:03)
--- NOTE | 2020-10-06 15:21 | NUR ---
DISCHARGE [facility] FAXED ALL INFORMATION. SCRIPT, ELZA, & EXTRA SUPPLIES SENT W/ PT & FAMILY. DC VIA [facility].
== END 2020-10-06 15:19 | disposition home or self-care (01) | DRG 481 ==
LOC: ER 10:42 → SURS 15:35
PROVIDERS: Emergency Medicine; Family Medicine; Internal Medicine; Orthopaedic Surgery; ADMIT Family Medicine
PROC: 0QH634Z Insertion of Internal Fixation Device into Right Upper Femur, Percutaneous Approach (ICD-10-PCS; principal; 2020-10-02 13:00)
DX: S72.001A Fracture of unspecified part of neck of right femur, initial encounter for closed fracture (principal); F03.91 Unspecified dementia, unspecified severity, with behavioral disturbance; F25.0 Schizoaffective disorder, bipolar type; E03.9 Hypothyroidism, unspecified; Z20.822 Contact with and (suspected) exposure to COVID-19; R79.89 Other specified abnormal findings of blood chemistry; K21.9 Gastro-esophageal reflux disease without esophagitis; Z66 Do not resuscitate; R63.3 Feeding difficulties; K59.00 Constipation, unspecified; F06.1 Catatonic disorder due to known physiological condition; W19.XXXA Unspecified fall, initial encounter; G40.909 Epilepsy, unspecified, not intractable, without status epilepticus; R63.0 Anorexia; Z87.891 Personal history of nicotine dependence; Z68.25 Body mass index [BMI] 25.0-25.9, adult; D69.59 Other secondary thrombocytopenia; T45.515A Adverse effect of anticoagulants, initial encounter; I12.9 Hypertensive chronic kidney disease with stage 1 through stage 4 chronic kidney disease, or unspecified chronic kidney disease; N18.30 Chronic kidney disease, stage 3 unspecified
CPT/HCPCS: 0241U; 36415; 72100; 72170; 72192; 73600; 74018; 76705; 80048; 80053; 80177; 83690; 83735; 84100; 85025; 85610; 92610; 96372; 96374-59; 96376; 97161; 97166; 97530; 99285-25; A9270; C1713; C1769; G0378; J0690; J1100; J1650; J2250; J2270; J2405; J2704; J2710; J3010; J7120

== ENCOUNTER 2020-10-10 17:21 | Inpatient (IN) | payer OTHER ==
[~2020-10-10] VITALS: Ht 167.6 cm; Wt 64.1 kg
[~2020-10-10 17:21] MED LIST changes: +ACET325 PO; +ALUM-MAG HYDROX30 ML PO; +Ativan1 MG PO; +BIOTIN5 MG PO; +BISA10S PR; +Benztropine Mesy1 MG PO; +CALMOSEPTINE TOP; +DULCOLAX400 MG/5 M PO; +ELIQUIS2.5 MG PO; +EUCERIN CREME TOP; +HALO2 PO; +KEPPRA100 MG/1 M PO; +LEVSOD25 PO; +LOPE2C PO; +MELATONIN5 M1 PO; +MIRALAX17 GM PO; +NYSTOP15 GM TOP; +OXAYDO5 M1 PO; +PROC25S PR; +Prozac20 MG PO; +TRIPLE ABX TOP; +Vitamin B Comple1 EA PO; +Vitamin B-121000 MCG PO
[2020-10-10 17:55] LABS: BASOPHILS ABSOLUTE AUTO 0.07 K/mm3 (0.00-0.23); BASOPHILS PERCENT AUTO 1 % (0-2); EOSINOPHILS ABSOLUTE AUTO 0.08 K/mm3 (0.00-0.68); EOSINOPHILS PERCENT AUTO 1 % (0-6); Hematocrit 42.3 % (33.0-51.0); Hemoglobin 13.1 g/dL (11.5-16.0); IMMATURE GRAN ABSOLUTE AUTO 0.05 K/mm3 (0.00-0.10); IMMATURE GRAN PERCENT AUTO 1 % (0-1); LYMPHOCYTES PERCENT AUTO 23 % (21-46); MONOCYTES PERCENT AUTO 9 % (4-13); Mean Corpuscular HGB 28.4 pg (26.0-34.0); Mean Corpuscular Volume 92 fL (80-100); NEUTROPHILS ABSOLUTE AUTO 4.99 K/mm3 (1.96-9.15); NEUTROPHILS PERCENT AUTO 65 % (41-73); Platelet Count 222 K/mm3 (150-400); RDW Coefficient Variation 13.6 % (11.7-14.2); RDW Standard Deviation 45.9 fL (35.1-46.3); Red Blood Cell Count 4.61 M/mm3 (3.80-5.20); White Blood Cell Count 7.69 K/mm3 (4.00-11.30)
[2020-10-10 18:08] LABS: Alanine Aminotransfer (ALT/SGP 41 U/L (12-78); Albumin, Blood 2.9 g/dL (3.4-5.0); Albumin/Globulin Ratio 0.8 (0.8-1.8); Alk Phos 130 U/L (50-136); Anion Gap 10 mmol/L (6-16); Aspartate Aminotrans (AST/SGOT 28 U/L (12-37); Bilirubin, Total 0.6 mg/dL (0.1-1.0); Blood Urea Nitrogen 12 mg/dL (8-24); Bun/Creatinine Ratio 18.4 (12.0-20.0); CO2, Blood 23 mmol/L (21-32); Calcium, Blood 9.2 mg/dL (8.5-10.1); Chloride, Blood 111 mmol/L (98-108); Creatinine, Blood 0.65 mg/dL (0.40-1.00); Globulin, Blood 3.8 g/dL (2.2-4.0); Glomerular Filtration Rate >60 (60-); Glucose, Blood 76 mg/dL (70-99); Sodium, Blood 144 mmol/L (136-145); Total Protein, Blood 6.7 g/dL (6.4-8.2)
[2020-10-10 19:32] LABS: Magnesium, Blood 2.2 mg/dL (1.6-2.4)
[2020-10-10 22:59] LABS: Base Excess Venous -0.3 mmol/L; Bicarbonate Venous 24.1 mmol/L (24.0-30.0); PCO2 Venous 41.5 mmHg (38-42); PO2 Venous 199 mmHg (38-42); pH Blood Venous 7.38 (7.34-7.37)
[2020-10-10 23:37] LABS: Thyroid Stimulating Hormone 1.38 uIU/mL (0.360-4.800)
[2020-10-11 05:56] LABS: BASOPHILS ABSOLUTE AUTO 0.07 K/mm3 (0.00-0.23); BASOPHILS PERCENT AUTO 1 % (0-2); EOSINOPHILS ABSOLUTE AUTO 0.15 K/mm3 (0.00-0.68); EOSINOPHILS PERCENT AUTO 2 % (0-6); Hematocrit 39.5 % (33.0-51.0); Hemoglobin 12.3 g/dL (11.5-16.0); IMMATURE GRAN ABSOLUTE AUTO 0.03 K/mm3 (0.00-0.10); IMMATURE GRAN PERCENT AUTO 0 % (0-1); LYMPHOCYTES ABSOLUTE AUTO 1.79 K/mm3 (0.84-5.20); LYMPHOCYTES PERCENT AUTO 26 % (21-46); MONOCYTES ABSOLUTE AUTO 0.72 K/mm3 (0.16-1.47); MONOCYTES PERCENT AUTO 11 % (4-13); Mean Corpuscular HGB Conc 31.1 g/dL (31.5-36.5); Mean Corpuscular Volume 93 fL (80-100); Mean Platelet Volume 9.6 fL (9.1-12.4); NEUTROPHILS ABSOLUTE AUTO 4.03 K/mm3 (1.96-9.15); NEUTROPHILS PERCENT AUTO 59 % (41-73); Platelet Count 199 K/mm3 (150-400); RDW Coefficient Variation 13.7 % (11.7-14.2); RDW Standard Deviation 46.8 fL (35.1-46.3); Red Blood Cell Count 4.24 M/mm3 (3.80-5.20); White Blood Cell Count 6.79 K/mm3 (4.00-11.30)
[2020-10-11 06:16] LABS: Anion Gap 8 mmol/L (6-16); Blood Urea Nitrogen 17 mg/dL (8-24); Bun/Creatinine Ratio 22.5 (12.0-20.0); CO2, Blood 26 mmol/L (21-32); Calcium, Blood 9.4 mg/dL (8.5-10.1); Chloride, Blood 115 mmol/L (98-108); Creatinine, Blood 0.76 mg/dL (0.40-1.00); Glomerular Filtration Rate >60 (60-); Glucose, Blood 51 mg/dL (70-99); Sodium, Blood 149 mmol/L (136-145)
[2020-10-11 10:37] LABS: Source, Urine Clean Catch
[2020-10-11 10:42] LABS: Bilirubin, Urine Neg (Neg); Blood, Urine 1+ (Neg); Glucose Qualitative, Urine Neg (Neg); Ketones, Urine 3+ (Neg); Leukocyte Esterase, Urine 3+ (Neg); Nitrite, Urine Pos (Neg); Protein, Urine 1+ (Neg); Urobilinogen, Urine NORM (Normal)
[2020-10-11 11:14] LABS: Appearance, Urine Hazy (Clear); Color, Urine Yellow (P-Yellow)
[2020-10-11 11:17] LABS: Bacteria Many /hpf; Squamous Epithelial Cells Rare /hpf (Few); White Blood Cells, Urine 25-50 /hpf (0-5)
[2020-10-11 11:18] LABS: Amorphous Mod (0-Heavy); Mucus Light (0-Heavy)
--- NOTE | 2020-10-11 16:18 | NUR ---
IV IN R HAND THAT WAS PLACED IN ER WAS REMOVED AND PLACE NEW 20G TO R HAND.
--- NOTE | 2020-10-11 17:59 | NUR ---
1420 PT WAS ADMITTED VIA GURNEY TO ICU-14 AND SHORTLY AFTER PT SEIZED WITH 2-3 DEEP BREATHS, THAN EYELID FLUTTERING AND CLONIC TONIC ACTIVITY OF ARMS AND LEGS WHICH LASTED APPROX 20 MAYBE 30 SECONDS. THIS WAS REPEATED IN THE NEXT HOUR 2-[address] DONOVAN FOLEY. VS NOTED. ORAL CARE DONE TO PT AND POSITIONED FOR AIRWAY PROTECTION ON L SIDE TOWARD THE DOOR FOR OBSERVATION.
--- NOTE | 2020-10-11 18:03 | NUR ---
PT HAS HAD A FEW SEIZURES AFTER ADMIT APPROX 4-6 AND SEEMS TO POSSIBLE HAVE SLOWED AFTER VALPROATE ACID IV STARTED. PT VS HAVE BEEN STABLE ADN I/O NOTED. NO RESP DISTRESS AND O2 HAS BEEN TURNED DOWN FROM 3L FROM ER TO 1L AT THIS TIME. HR HAS SLOWED TO 90 RANGE.
--- NOTE | 2020-10-11 20:58 | NUR ---
DONOVAN ROUNDING: PT CONTINUES TO HAVE 10-15 SECOND EPISODES OF SEIZURE-LIKE ACTIVITY APPROX Q20MIN. THEY APPEAR TO BE UNCHANGED FROM PREVIOUS RN REPORT. PT BECOMES TACHYPNEIC, LIMBS FLEX & BECOME STIFF, & PT BEGINS TO SHAKE W/ EYELIDS FLUTTERING. PT MOANS BUT CONTINUES TO BE NONVERBAL. PT IS NOW BEGINNING TO DESAT W/ THESE EPISODES WHICH IS NEW. MAPs DEC TO 50s. DONOVAN @ BEDSIDE, ORDERS FOR FLUID BOLUS & IVP ATIVAN. DONOVAN UPDATES PT'S SISTER WHO IS ALSO HER GUARDIAN. IT IS CONFIRMED FAMILY DOES NOT WANT INTERVENTIONS BEYOND FLUID BOLUSES FOR PT'S BP & IS CURRENTLY DISCUSSING POSSIBLE COMFORT CARE.
[2020-10-12 03:57] LABS: BASOPHILS ABSOLUTE AUTO 0.06 K/mm3 (0.00-0.23); BASOPHILS PERCENT AUTO 1 % (0-2); EOSINOPHILS ABSOLUTE AUTO 0.15 K/mm3 (0.00-0.68); EOSINOPHILS PERCENT AUTO 3 % (0-6); Hematocrit 35.6 % (33.0-51.0); IMMATURE GRAN ABSOLUTE AUTO 0.02 K/mm3 (0.00-0.10); IMMATURE GRAN PERCENT AUTO 0 % (0-1); LYMPHOCYTES ABSOLUTE AUTO 1.39 K/mm3 (0.84-5.20); LYMPHOCYTES PERCENT AUTO 27 % (21-46); MONOCYTES ABSOLUTE AUTO 0.48 K/mm3 (0.16-1.47); MONOCYTES PERCENT AUTO 9 % (4-13); Mean Corpuscular HGB 28.5 pg (26.0-34.0); Mean Corpuscular HGB Conc 30.9 g/dL (31.5-36.5); Mean Corpuscular Volume 92 fL (80-100); Mean Platelet Volume 9.7 fL (9.1-12.4); NEUTROPHILS ABSOLUTE AUTO 3.14 K/mm3 (1.96-9.15); NEUTROPHILS PERCENT AUTO 60 % (41-73); Platelet Count 198 K/mm3 (150-400); RDW Coefficient Variation 13.4 % (11.7-14.2); RDW Standard Deviation 45.4 fL (35.1-46.3); Red Blood Cell Count 3.86 M/mm3 (3.80-5.20); White Blood Cell Count 5.24 K/mm3 (4.00-11.30)
[2020-10-12 04:24] LABS: Alanine Aminotransfer (ALT/SGP 27 U/L (12-78); Albumin, Blood 2.3 g/dL (3.4-5.0); Albumin/Globulin Ratio 0.7 (0.8-1.8); Alk Phos 96 U/L (50-136); Anion Gap 6 mmol/L (6-16); Aspartate Aminotrans (AST/SGOT 14 U/L (12-37); Bilirubin, Total 0.8 mg/dL (0.1-1.0); Blood Urea Nitrogen 9 mg/dL (8-24); Bun/Creatinine Ratio 14.1 (12.0-20.0); CO2, Blood 26 mmol/L (21-32); Calcium, Blood 8.1 mg/dL (8.5-10.1); Chloride, Blood 114 mmol/L (98-108); Creatinine, Blood 0.64 mg/dL (0.40-1.00); Globulin, Blood 3.2 g/dL (2.2-4.0); Glomerular Filtration Rate >60 (60-); Glucose, Blood 99 mg/dL (70-99); Potassium, Blood 3.4 mmol/L (3.5-5.5); Sodium, Blood 146 mmol/L (136-145); Total Protein, Blood 5.5 g/dL (6.4-8.2)
--- NOTE | 2020-10-12 06:02 | NUR ---
SHIFT SUMMARY: PT CONTINUES TO HAVE EPISODES OF SEIZURE-LIKE ACTIVITY. MOANING AT TIMES & WITHDRAWING FROM NOXIOUS STIMULI. NONVERBAL, UNABLE TO FOLLOW COMMANDS. PT INTERMITTENTLY HYPOTENSIVE, RESOLVES W/ POSITION CHANGES. SEVERAL ROUNDS OF ORAL CARE GIVEN PT CONTINUES TO BREATHE W/ MOUTH WIDE OPEN. YELLOW & BROWN ORAL CASTS REMOVED FROM PT'S MOUTH. NO ACUTE NEG CHANGES. SEE PREVIOUS RN NOTATION FOR FULL PLAN OF CARE. PT'S SISTER PLANS ON CALLING DR MAN TODAY & UPDATING HER ON POSSIBLE PLANS FOR HOSPICE.
--- NOTE | 2020-10-12 08:20 | NUR ---
ASSESSMENT- PT COMATOSE, NO RESPONSE TO VERBAL STIMULUS, NO RESPONSE UPPER EXTREMITIES TO PAINFUL STIMULUS, LOWER EXTREMITIES UPWARD DEVIATION TO PAINFUL STIMULUS. EYES CLOSED. HAS HAD THREE SHORT (ESTIMATED 10 SECOND SEIZURES) SINCE REPORT AT 0700. EYES FLUTTER OPEN, DOES MAKE MOANING SOUND AND EXTREMITIES STIFFEN. ALSO HANDS CLENCH. ON THREE ANTI-SEIZURE MEDICATIONS. IV ACCESS RIGHT WRIST D51/2 AT 75 CC/HR, WILL ATTEMPT MORE ACCESS. RESPIRATIONS UNLABORED, EVEN, LUNGS CLEAR, DIMINISHED. SINUS TACH 100'S, BP STABLE. NPO. ORAL CARE DONE. UO VIA BARCENAS. REPOSITIONED.
--- NOTE | 2020-10-12 09:16 | NUR ---
DR. SHARMA HERE-UPDATED, AWARE OF NEURO STATUS, SEIZURES. ASSESSED PT. PT'S SISTER JOEL CALLED AND UPDATED. QUESTIONS ANSWERED.
--- NOTE | 2020-10-12 10:31 | NUR ---
DR. SHARMA CALLED PT'S SISTER. ORDER FOR COMFORT CARE, MEDICAL STATUS. CONTINUES WITH INTERMITTENT SEIZURES (ABOUT 10 SECONDS EVERY 20-25 MINUTES) IV ATIVAN 4 MG GIVEN. SEIZURE MEDS PER EMAR
--- NOTE | 2020-10-12 11:11 | NUR ---
REPOSITIONED, LINEN CHANGE DONE. NO FURTHER SEIZURES SEEN SINCE RX WITH ATIVAN IV. WILL CONTINUE TO MONTIOR
--- NOTE | 2020-10-12 11:29 | NUR ---
PT'S SISTER JOEL CALLED BACK, COMFORT CARE STATUS. STATES BROTHER AND GRANDCHILDREN WOULD LIKE TO VISIT. NO FURTHER SEIZURES SEEN
--- NOTE | 2020-10-12 11:42 | NUR ---
SONIA NELSON FROM [facility] CALLED-WILL ACCEPT BACK TO [facility] ON HOSPICE WITH SAME DAY HOSPICE SERVICE SCHEDULE
--- NOTE | 2020-10-12 12:39 | NUR ---
SHORT 10 SECOND SEIZURE, DR SHARMA HERE. RX WITH ATIVAN 2 MG. CONTINUE TO MONITOR
--- NOTE | 2020-10-12 14:05 | NUR ---
pt transitioning to comfort only review of medications and needs with physician and nursing. Will monitor for seizures. reduce hydration. Willsee if appropraite for discharge on hospice. At this time needs iv medications.
--- NOTE | 2020-10-12 14:21 | NUR ---
NOR FURTHER SEIZURES NOTED. COMATOSE, NO S/S PAIN. NSR. NO GRIMACING. PT'S GRANDCHILDREN HERE-UDPATED
--- NOTE | 2020-10-12 15:40 | NUR ---
CARE COORDINATION REFERRAL - ADMIT: 10/11/20 DISCHARGE: DX: SEIZURE DISORDER OF UNKNOWN ETIOLOGY CC: [facility] CALL: [facility] RESIDENCE: [facility] ([facility] CAREGIVER: POA- SISTER JOEL RODAS ([place]) DX: BIPOLAR, SCHIZOPHRENIC, GERD, PTSD, CKD=STAGE 3, SEE LIST DME: [facility], [facility] CCM: NONE HOME HEALTH: [facility] - 2020 SUMMARY: 10/12/20- PER CHART NOTE, SISTER CHANGES PT'S STATUS TO COMFORT CARE/HOSPICE. SPOKE WITH SONIA AT [facility]. THEY WILL ACCEPT THE PT BACK ON HOSPICE CARE BUT IT WILL HAVE TO BE THE SAME DAY SHE STARTS HOSPICE BECAUSE SHE IS A VERY SICK LADY. KEL WITH [facility] IS REVIEWING THE PT [facility] AND HAVE BEEN TOLD THAT PT COULD START SERVICES TENTIATIVELY MONDAY. -AKHIL
--- NOTE | 2020-10-12 16:18 | NUR ---
RX FOR SHORT SEIZURE, REPOSITIONED. REMAINS UNRESPONSIVE. NSR
--- NOTE | 2020-10-12 16:29 | NUR ---
Spiritual care note: Joy was not responsive to voice or touch. she appears to be peacefully sleeping. No family present. I prayed for her at bedside and will remain available.
--- NOTE | 2020-10-12 17:55 | NUR ---
REPOSITIONED PT, BREATHING IRREGULAR. HEARTRATE 90'S. ORAL CARE DONE. CONTINUE TO MONITOR. NO S/S SEIZURE
--- NOTE | 2020-10-12 19:15 | NUR ---
ASSUMING PT CARE: PT LAYING SUPINE IN BED, MOUTH OPEN WIDE & BREATHING ONLY THROUGH HER MOUTH. PT RESPONDS ONLY TO NOXIOUS STIMULI, LIGHTLY PULLING ARMS TOWARD SELF DURING REPOSITIONING. GCS=8. NO SEIZURE ACTIVITY OBSERVED AT THIS TIME. SEIZURE PADS IN PLACE. LIGHTS DIMMED FOR DEC STIMULATION, MUSIC TURNED ON LOW VOLUME FOR COMFORT. PT WAS PLACED ON COMFORT CARE TODAY, NOW MEDICAL STATUS.
--- NOTE | 2020-10-13 05:33 | NUR ---
SHIFT SUMMARY: PT CONTINUES TO REST W/ EVEN & UNLABORED RR. VS UNCHANGED THROUGHOUT THE SHIFT. PT APPEARED TO HAVE OPENED HER EYES UPON COMMAND ONE TIME, BUT MAY HAVE BEEN REFLEXIVE AFTER RECEIVING ORAL CARE. PT REMAINED RESPONSIVE ONLY TO NOXIOUS STIMULI FOR THE REST OF THE SHIFT. NO EPISODES OF SEIZURE ACTIVITY THIS SHIFT. GOOD URINE OUTPUT OF 300ml. AWAITING TRANSFER TO MEDICAL FLOOR ONCE A ROOM BECOMES AVAILABLE. WILL CONTINUE TO MONITOR UNTIL REPORT OFF TO ONCOMING RN.
--- NOTE | 2020-10-13 08:30 | NUR ---
ASSESSMENT- PT WITH EYES CLOSED, DID OPEN EYES IN RESPONSE TO NAME, NO OTHER RESPONSE TO COMMANDS AND DID NOT REPEAT. YAWNS, OPENS EYES. DOES MOVE EXTREMITIES IN RESPONSE TO PAINFUL STIMULUS. NO S/S SEIZURES NOTED. NSR. LUNGS CLEAR, VERY DIMINISHED, BREATHING SHALLOW. ABDOMEN SOFT, NPO D/T MENTAL STATUS. UO VIA BARCENAS. COMFORT CARE. REPOSITIONED. RIGHT HIP DRSG REPLACED-SUTURES DI.
--- NOTE | 2020-10-13 09:52 | NUR ---
REPORT CALLED TO TRACE NELSON, PT TO TRANSFER TO ROOM 324 MEDICAL COMFORT CARE STATUS. [facility]ER[facility] FOR HER TO SIGN TODAY AND PLANS FOR TRANSITION BACK TO [facility] TOMORROW AT 1000.
--- NOTE | 2020-10-13 18:20 | NUR ---
SHIFT SUMMARY KRISTINA ARRIVED AROUND 1030AM FROM ICU. PT RESTING COMFORTABLY. NO BMS. REGULAR TURNS PERFORMED. NO S/S PAIN OR DISCOMFORT. NO SEIZURES NOTED. PT OPENED HER EYES TWICE THIS SHIFT, GENERALLY NONRESPONSIVE. BARCENAS INTACT AND DRAINING. FREQUENT CHECKS, WCTM
--- NOTE | 2020-10-13 18:25 | NUR ---
Spiritual care note: No family present today when I visited. Mrs. Blackwell was not responsive to voice or touch. Breaths even and unlabored. She appears comfortable and well cared-for by nursing. I sat with her and prayed for awhile. I will remain available to pt and family.
--- NOTE | 2020-10-13 19:56 | NUR ---
RESTING QUIETLY. NO NOTED RESPONSE TO VERBAL STIMULI. NO NOTED SEIZURE ACTIVITY. HOB AT APPROX 30 DEGREES FOR BREATHING COMFORT. CALL LIGHT IN REACH.
--- NOTE | 2020-10-13 23:14 | NUR ---
RESTING QUIETLY. WAS REPOSITIONED. CALL LIGHT IN REACH
--- NOTE | 2020-10-13 23:15 | NUR ---
CONTINUES TO REST QUIETLY. IV SEIZURE MEDICATIONS INFUSING. CALL LIGHT IN REACH.
--- NOTE | 2020-10-14 01:14 | NUR ---
CONTINUES TO REST QUIETLY. NO NOTED S/S PAIN. IV ANTI SEIZURE MEDS INFUSING. NO S/S SEIZURE ACTIVITY. CALL LIGHT IN REACH
--- NOTE | 2020-10-14 04:33 | NUR ---
RESTING QUIETLY. CALL LIGHT IN REACH
--- NOTE | 2020-10-14 05:48 | NUR ---
RESTING QUIETLY. SISTER CALLED RE UPDATE ON PT STATUS. STATED SHE WOULD CALL AGAIN LATER.
[2020-10-14] MEDS ORDERED: APHEN325 M1 PR (08:46)
[2020-10-14] MEDS ORDERED: ATROPINE SULFATE5 ML SL (08:46)
[2020-10-14] MEDS ORDERED: MORP20L SL (08:47)
[2020-10-14] MEDS ORDERED: TRANSDERM-SCOP1 EAC1 TD (08:48)
--- NOTE | 2020-10-14 08:54 | NUR ---
MORNING ASSESSMENT: LATE ENTRY PATIENT RESTING COMFORTABLY IN BED. BROW IS SMOOTH, NO MOVEMENT OF UPPER OR LOWER EXTREMITIES. BREATHING IS EVEN AND REGULAR. NO WET BREATH SOUNDS OR COUGH. BARCENAS IS PATENT AND DRAINING SMALL AMOUNTS OF CLEAR, YELLOW URINE. REPOSITIONED PATIENT.
[2020-10-14] MEDS ORDERED: Ativan1 MG PO (09:39)
[2020-10-14] MEDS ORDERED: Diastat2.5 MG PR (09:39)
[2020-10-14] MEDS ORDERED: ONDA4ODT MM (09:39)
--- NOTE | 2020-10-14 12:01 | NUR ---
DISCHARGE SUMMARY: PATIENT DISCHARGED AT 11:15 WITH [facility] TRANSPORT TO [facility] ([place]). PERICARE AND ATTENDS CHANGED PERFORMED PRIOR TO DISCHARGE. PATIENT MEDICATED WITH PRN MEDICATION PRIOR TO DISCHARGE. SPOKE WITH BYRON GREY ABOUT PATIENT RECEIVING AN ORDER TO SOOTHE HER THROAT. UNFORTUNATELY, PATIENT DISCHARGED RIGHT AFTER THIS CONVERSATION AND MEDICATION WAS UNABLE TO BE ORDERED PRIOR TO DISCHARGE. PATIENT CONTINUES TO APPEAR COMFORTABLE. BROW IS SMOOTH, BREATHING IS EVEN AND REGULAR, PATIENT'S UPPER AND LOWER EXTREMITIES ARE CALM. PATIENT DISCHARGED WITH TRANSPORT. PATIENT STABLE AT TIME OF DISCHARGE.
== END 2020-10-14 11:32 | disposition hospice, home (50) | DRG 101 ==
LOC: ER 17:21 → ERHOLD 22:17 → ER 22:17 → ICUW 10-11 14:00 → MEDS 10-13 10:20
PROVIDERS: Emergency Medicine; Internal Medicine Gastroenterology; ADMIT Family Medicine
DX: G40.301 Generalized idiopathic epilepsy and epileptic syndromes, not intractable, with status epilepticus (principal); F03.91 Unspecified dementia, unspecified severity, with behavioral disturbance; F31.10 Bipolar disorder, current episode manic without psychotic features, unspecified; E03.9 Hypothyroidism, unspecified; E78.5 Hyperlipidemia, unspecified; F25.9 Schizoaffective disorder, unspecified; Z51.5 Encounter for palliative care; F43.10 Post-traumatic stress disorder, unspecified; I12.9 Hypertensive chronic kidney disease with stage 1 through stage 4 chronic kidney disease, or unspecified chronic kidney disease; N18.30 Chronic kidney disease, stage 3 unspecified; K21.9 Gastro-esophageal reflux disease without esophagitis; Z66 Do not resuscitate; Z79.01 Long term (current) use of anticoagulants; Z87.891 Personal history of nicotine dependence
CPT/HCPCS: 36415; 51702; 70450; 70551; 71045; 80048; 80053; 81001; 82803; 82947; 83605; 83735; 84100; 84146; 84443; 85025; 87077; 87086; 87186; 93005; 93010; 96365-59; 96367; 96375; 96375-59; 96376; 99285-25; A9270; J1650; J1953; J2060; J7030; J7042; J7050; Q2009

== ENCOUNTER → 2020-12-15 | Outpatient (CLI) | payer OTHER ==
[~2020-12-15] MED LIST changes: +APHEN325 M1 PR; +ATROPINE SULFATE5 ML SL; +Diastat2.5 MG PR; +MORP20L SL; +ONDA4ODT MM; +TRANSDERM-SCOP1 EAC1 TD
[2020-12-16 13:49] LABS: Appearance, Urine Hazy (Clear); Bilirubin, Urine Neg (Neg); Blood, Urine 4+ (Neg); Color, Urine Yellow (P-Yellow); Glucose Qualitative, Urine Neg (Neg); Ketones, Urine Neg (Neg); Leukocyte Esterase, Urine 3+ (Neg); Nitrite, Urine Pos (Neg); Protein, Urine 1+ (Neg); Specific Gravity, Urine 1.025 (1.003-1.022); Urobilinogen, Urine NORM (Normal)
[2020-12-16 14:25] LABS: Bacteria Many /hpf; Squamous Epithelial Cells Few /hpf (Few); White Blood Cells, Urine 50-100 /hpf (0-5)
[2020-12-16 14:28] LABS: Calcium Oxalate Crystals Few /hpf; Uric Acid Crystals Few /hpf
== END | disposition home or self-care (01) ==
LOC: LAB SHORT 13:40
PROVIDERS: Family Medicine
DX: N39.0 Urinary tract infection, site not specified (principal)
CPT/HCPCS: 81001; 87077; 87086; 87186